=== PATIENT | female | born 1945 | race Two or more races ===

== ENCOUNTER 2018-02-17 07:45 | Outpatient (CLI) | payer OTHER | END 2018-02-17 07:50 | disposition home or self-care (01) | LOC: SONOGRAMA 07:45 | DX: R59.0 Localized enlarged lymph nodes (principal) ==

== ENCOUNTER → 2018-05-20 | Outpatient (CLI) | payer OTHER | END | disposition home or self-care (01) | LOC: NUCLEAR 08:30 | DX: C82.04 Follicular lymphoma grade I, lymph nodes of axilla and upper limb (principal) | CPT/HCPCS: 78815; A9552 ==